=== PATIENT | female | born 1990 | race Hispanic/Latino ===

== ENCOUNTER 2024-02-21 18:16 | Emergency (ER) | payer SELFPAY ==
[~2024-02-21] VITALS: Ht 149.9 cm; Wt 65.8 kg
[2024-02-21 19:04] LABS: BILIRUBIN,URINE NEGATIVE (NEGATIVE); CLARITY,URINE SL CLOUDY (CLEAR); COLOR,URINE YELLOW (YELLOW); GLUCOSE, URINE NEGATIVE (NEGATIVE); KETONES,URINE NEGATIVE (NEGATIVE); LEUKOCYTE ESTERASE ,URINE NEGATIVE (NEGATIVE); NITRITE,URINE NEGATIVE (NEGATIVE); PH,URINE 5.5 (5 - 7); PREGNANCY TEST, URINE NEGATIVE (NEGATIVE); PROTEIN,URINE DIPSTICK NEGATIVE (NEGATIVE); URINE UROBILINOGEN 0.2 mg/dL (0.2 - 1)
[2024-02-21] MEDS ORDERED: FIORICET 50-301 EACH PO (19:08)
[2024-02-21] MEDS ORDERED: ONDANSETRON ODT4 MG SL (19:08)
[2024-02-21 19:13] VITALS: PULSE 89; RESP 16; TEMP 99
[2024-02-21 19:14] LABS: BACTERIA,URINE FEW /HPF; EPITHELIAL CELLS,URINE FEW /LPF; RBC,URINE 0-5 /HPF (0-5)
[2024-02-21] MEDS: ACETAMIN/BUTALBITAL/CAFFEINE TAB PO ONE (19:22)
[2024-02-21] MEDS: ONDANSETRON HCL 4 MG ORAL DISINTEGRATING TAB PO ONE (19:22)
[2024-02-21] MEDS: KETOROLAC TROMETHAMINE 60 MG/2 ML VIAL IM ONE (19:22)
[2024-02-21 19:50] VITALS: BP 129/95; PULSE 88; RESP 19; TEMP 99.2; O2SAT 99
== END 2024-02-21 19:56 | disposition home or self-care (01) ==
LOC: ER 18:20
DX: R51.9 Headache, unspecified (principal); R11.2 Nausea with vomiting, unspecified
CPT/HCPCS: 81001; 81025; 99283; J1885; Q0162